=== PATIENT | female | born 2000 | race Caucasian/White ===

== ENCOUNTER 2025-03-11 11:42 | Outpatient (REF) | payer MEDICAID, SELFPAY ==
--- OUTSIDE RECORDS SUMMARY | 2025-03-11 12:56 | XMS_ITS ---
Author Organization [employer] Address [address] [place] [address] Care Team Providers Care Tool Grinding Technician Name Role Phone Unavailable Primary Care Provider Unavailabl e C3 CHW TO Status:Enrolled (Active) Start date:02/05/2025 Enrollment date:02/21/2025 Enrollment reason:ADT Feed Case Team Name Relationship Phone Esperanza Redding(Responsible Staff) Assurance Specialist Continued Care and Services Coordination
--- OUTSIDE RECORDS SUMMARY | 2025-03-11 12:56 | XMS_ITS ---
Author Organization [email or web address] Address [address] [place] [address] [place] [address] Care Team Providers Care Astrochemist Name Role Phone Unavailable Primary Care Provider Unavailabl e C3 CM BHTOC Status:Enrolled (Active) Start date:02/05/2025 Enrollment date:02/06/2025 Enrollment reason:ADT Feed Case Team Name Relationship Phone Britany Rodriges LMHC(Responsible Staff) Social Worke r [phone] Continued Care and Services Coordination
--- OUTSIDE RECORDS SUMMARY | 2025-03-11 12:56 | XMS_ITS | Encounter Summary ---
Author Organization [employer] Address [address] [facility] 7 [place] [address] Care Team Providers Care Information Systems Security Analyst Name Role Phone Unavailable Primary Care Provider Unavailabl e Reason for Visit * Reason Onset Date Comments Chart Prep 03/10/2025 Encounter Details Date Type Department Care Team (Late st Contact Info) Description 03/10/2025 Telephone [facility] [address] [place], [place] [phone] Robyn Duarte MD [address] [place] [address] Chart Prep Social History Tobacco Use Types Packs/Day Years Used Date Smoking Tobacco: Never Assessed Housing Stability Answer Date Recorded What is your housing situation today? I have housing today, but I am worried about losing housing in the future 02/26/[address] you li ve. Do you have problems with any of the following? None of the above 02/26/2025 Food Insecurity Answer Date Recorded Within the past 12 months, y ou worried that your food would run out before you got money to buy more: Often true 02/21/2025 Within the past 12 months,th e food you bought just didn't last and you didn't have enough money to get more: Often true 11/2024 Transportation Answer Date Recorded In the past 12 months, has l ack of transportation kept you from medical appts, meetings, work or from getting things needed for daily living? Yes, it has kept me from medical appointments or getting medications. 02/21/2025 Utilities Answer Date Recorded In the past 12 months, has t he electric, gas, oil or water company threatened to shut off services in your home? No 02/21/2025 Internet Access Answer Date Recorded Internet Access Q1 No 02/21/2025 Internet Access Q2 I cannot afford it 02/21/2025 Comments Unknown Sex and Gender Information Value Date Recorded Sex Assigned at Female 05/28/2024 10:51 AM EDT Legal Sex Female 10:49 AM EDT Gender Identity Female 05/28/2024 10:51 AM EDT Sexual Orientation Don't know 05/28/2024 10 :51 AM EDT documented as of this encounter Miscellaneous Notes * Telephone Encounter - Nereida Ponce MA - 03/10/2025 3:37 PM EDT Chart Prep Labs: not applicable Images: not applicable Referrals: not applicable Vaccines due: Covid, Tdap, Hep B, Hep A, MCV4, and HPV Screenings: pap smear, STI screening, LMP, and Hepatitis C Screening, HIV Screenig, Tobacco Screening Overdue care gaps: SBIRT, PHQ-9, GEORGE-7, Oral health screening, Disability screen, and Tobacco documented in this encounter Plan of Treatment Not on file documented as of this encounter Visit Diagnoses Not on filedocumented in this encounter
--- OUTSIDE RECORDS SUMMARY | 2025-03-11 12:56 | XMS_ITS | Encounter Summary ---
Author Organization [employer] Address [address] [facility] 7t [place] [address] Care Team Providers Care Medical Planner Name Role Phone Unavailable Primary Care Provider Unavailabl e Encounter Details Date Type Department Care Team (Latest Contact Info) Description 03/11/2025 Travel Social History Tobacco Use Types Packs/Day Years Used Date Smoking Tobacco: Never Smokeless Tobacco: Never Alcohol Use Standard Drinks/Week Comments Never 0 (1 standard drink = 0.6 oz pur e alcohol) Housing Stability Answer Date Recorded What is [...] t he electric, gas, oil or water [facility] threatened to shut off services in your home? No 02/21/2025 Internet Access Answer Date Recorded Internet Access Q1 No 02/21/2025 Internet Access Q2 I cannot afford it 02/21/2025 Comments No Sex and Gender Information Value Date Recorded Sex Assigned at Female 05/28/2024 10:51 AM EDT Legal Sex Female 10:49 AM EDT Gender Identity Female 05/28/2024 10:51 AM EDT Sexual Orientation Don't know 05/28/2024 10 :51 AM EDT documented as of this encounter Plan of Treatment Not on file documented as of this encounter Visit Diagnoses Not on filedocumented in this encounter
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
--- OUTSIDE RECORDS SUMMARY | 2025-03-11 12:57 | XMS_ITS | Clinical Summary ---
Author Organization [facility] Address [address] [place] [address] Phone Care Team Providers Care Interactive Project Manager Name Role Phone Physician, No Pcp Primary Care Provider Unavaila ble Allergies No known active allergies Medications methocarbamoL (ROBAXIN) 750 mg tablet Take 1 tablet (750 mg total) by mouth 4 (four) times a day for 10 days. 40 each 12/22/2024 Active Encounters Date Type Department Care Team Description 12/22/2024 2:51 PM EST - 12/22/2024 5:42 PM EST Emergency [facility] Emergency [address] [place] [address] Acute back pain with sciatica, right (Primary Dx) Discharge Disposition: Home or Self Care from Last 3 Months Social History Tobacco Use Types Packs/Day Years Used Date Smoking Tobacco: Never Assessed Comments Unknown Sex and Gender Information Value Date Recorded Sex Assigned at Female 12/22/2024 3:42 PM EST Legal Sex Female 2:14 PM EST Gender Identity Female 12/22/2024 3:42 PM EST Sexual Orientation Not on file Obstetrics History Last Filed Vital Signs Vital Sign Reading Time Taken Comments Blood Pressure 100/66 12/22/2024 1:35 PM EST Pulse 99 12/22/2024 1:35 PM EST Temperature 36.9 ??C (98.4 ??F) 12/22/2024 1:35 PM ES T Respiratory Rate 20 12/22/2024 1:35 PM EST Oxygen Saturation 100% 12/22/2024 1:35 PM EST Inhaled Oxygen Concentration - - Weight 49.9 kg (110 lb) 12/22/2024 1:35 PM EST Height 165.1 cm (5' 5 ) 12/22/2024 1:35 PM EST Body Mass Index 18.3 12/22/2024 1:35 PM EST Plan of Treatment Health Maintenance Due Date Last Done Comments Gonorrhea/Chlamydia Screening 2001 HPV Vaccines (2 - 2-dose series) 09/26/2015 03/27/2015 Hepatitis A Vaccines (2 of 2 - 2-dose series) 09/26/2015 03/27/2015 Meningococcal B Vaccine (1 o f 2 - Standard) 2017 Hepatitis B Vaccines (2 of 3 - 3-dose series) 11/26/2018 10/29/2018 DTaP,Tdap,and Td Vaccines (1 - Tdap) 2020 Depression Screening 09/21/2022 HIV Screening 09/21/2022 Hepatitis C Screening 09/21/2022 Social Influencers of Health Screening 09/21/2022 Cervical Cancer Screening: P ap Smear 2022 COVID-19 Vaccine ( - 2023-2 5 season) 2024 Influenza Vaccine (Season Ended) 2025 10/29/2018, 06/30/2017, 06/23/2016 Meningococcal ACWY Vaccine Completed 10/29/2018 HIB Vaccines Aged Out No longer eligi ble based on patient's age to complete this topic IPV Vaccines Aged Out No longer eligi ble based on patient's age to complete this topic MMR Vaccines Aged Out No longer eligi ble based on patient's age to complete this topic Pneumococcal Vaccine: Pediatrics (0 to 5 Years) and At-Risk Patients (6 to 64 Years) Aged Out No longer eligible b ased on patient's age to complete this topic RSV Immunization Patients Under 20 months Aged Out No longer eligible b ased on patient's age to complete this topic Varicella Vaccines Aged Out No longer eligible based on patient's age to complete this topic Procedures Procedure Name Priority Date/Time Associated Diagnosis Comments XR LUMBAR SPINE 2-3 VIEWS STAT 12/22/2024 5:10 PM EST from Last 3 Months Results * XR Lumbar Spine 2-3 Views (12/22/2024 5:10 PM EST) Anatomical Region Laterality Modality Spine, L-spine Radiographic Marlin ging 12/23/2024 8:55 AM EST Impressions 12/23/2024 8:55 AM EST FINDINGS/IMPRESSION: Normal alignment. ??No fracture. ??No significant degenerative change. -------- FINAL REPORT -------- Dictated By: LEON ANGUIANO Dictated Date: 12/23/2024 08:55 ET Assigned Physician: LEON ANGUIANO Reviewed and Electronically Signed By: LEON ANGUIANO Signed Date: 12/23/2024 08:55 ET Workstation ID: [id number] Transcribed By: Self Edit Transcribed Date: 12/23/2024 08:55 ET Narrative 12/23/2024 8:55 AM EST XR LUMBAR SPINE 2-3 VIEWS INDICATION: ??Pain TECHNIQUE: XR LUMBAR SPINE 2-3 VIEWS COMPARISON: No priors available. Procedure Note Leon Anguiano MD - 12/23/2024 XR LUMBAR SPINE 2-3 VIEWS INDICATION: Pain TECHNIQUE: XR LUMBAR SPINE 2-3 VIEWS COMPARISON: No priors available. IMPRESSION: FINDINGS/IMPRESSION: Normal alignment. No fracture. No significantdegenerative change. -------- FINAL REPORT -------- Dictated By: LEON ANGUIANO Dictated Date: 12/23/2024 08:55 ET Assigned Physician: LEON ANGUIANO Reviewed and Electronically Signed By: LEON ANGUIANO Signed Date: 12/23/2024 08:55 ET Workstation ID: [id number] Transcribed By: Self Edit Transcribed Date: 12/23/2024 08:55 ET Minerva VAL[facility]INE IMG XR PROCEDURES Final Resul t from Last 3 Months Insurance MEDICAID - [place] Care Teams Interactive Project Manager Relationship Specialty Start Date End Date Physician, No Pcp PCP - General 12/22/24
--- OUTSIDE RECORDS SUMMARY | 2025-03-11 12:57 | XMS_ITS | Clinical Summary ---
Author Organization [facility] Address [address] [facility] [address] [place] [address] Care Team Providers Care Modular Set Crew Member Name Role Phone Unavailable Primary Care Provider Unavailabl e Allergies No known active allergies Medications gabapentin (Neurontin) 100 MG capsule Take 1 capsule by mouth 2 times daily. And 2 capsules at bedtime 01/31/20 25 Active melatonin 3 MG tablet Take 3 tablets by mouth at bedtime. 02/07/20 25 Active sertraline (Zoloft) 100 MG tablet Take 1 tablet by mouth in the morning. 02/26/20 25 Active cholecalcifero l (Vitamin D3) 25 MCG (1000 UT) tablet Take 1 tablet (1,000 Units) by mouth Once per day. 90 tablet 1 03/11/20 25 Active albuterol 108 (90 Base) MCG/ACT inhaler Inhale 2 puffs every 6 (six) hours if needed for wheezing. 18 g 03/11/20 25 026 Active nicotine polacrilex (Nicorette) 4 MG gum Chew 1 each (4 mg) if needed for smoking cessation. 100 each 03/11/20 25 025 Active cholecalcifero l (Vitamin D-3) 10 MCG (400 UNIT) tablet Take 1 tablet by mouth Once per day. 02/26/20 25 025 Discontinued(Re order (will not trigger notification to Pharmacy)) Active Problems Problem Noted Date Diagnosed Date Recurrent major depressive disorder, in partial remission 03/11/2025 Assessment & Plan (03/11/2025 11:53 AM EDT): Status post hospital discharge, doing well on sertraline + gabapentin Continue close follow-up with psychiatry and encouraged her to reschedule counseling appointment Advised to avoid using recreational substances including THC Patient feels safe at home and has crisis number, she is able to reach out for safety. Follow-up with me in 4 to 6 weeks Tetrahydrocannabinol (THC) u se disorder, moderate, in early remission, dependence 03/11/2025 Assessment & Plan (03/11/2025 11:53 AM EDT): On remission for few weeks, doing well on gabapentin and sertraline Will have BH to reach out to counseling in [facility] to reschedule patient appointments, patient will continue to reach out to reschedule her own appointment I congratulated him for being sober, she has crisis number, she can reach out to our walk-in center in case of severe cravings Vaping nicotine dependence, tobacco product 02/21 Assessment & Plan (03/11/2025 12:04 PM EDT): Discussed with patient regarding risks and dangers of vaping, advised to cut down on nicotine and use nicotine gum as needed. Will need PFTs at future visit Sexually transmitted disease counseling 03/11/20 Assessment & Plan (03/11/2025 11:52 AM EDT): Would like to be tested for STIs, history of unprotected intercourse with same partner for 8 years Desire for 03/11/2025 Assessment & Plan (03/11/2025 11:51 AM EDT): We discussed importance of treating underlying condition [...] she declined to use any contraceptive method. Encounters Date Type Department Care Team Description 03/11/2025 10:45 AM EDT Office Visit [facility] MEDICINE [address] [place] [phone] Robyn Duarte MD Recurrent major depressive disorder, in partial remission (CMS/HCC) (Primary Dx); Tetrahydrocannabin ol (THC) use disorder, moderate, in early remission, dependence (CMS/HCC); Vaping nicotine dependence, tobacco product; Sexually transmitted disease counseling; Desire for 03/11/2025 Travel 03/10/2025 Telephone [facility] MED[facility]INE [address] [place] [phone] Robyn Duarte MD Chart Prep 03/05/2025 Patient Outreach [address] [phone] Amrik Adler MD Transition Of Care (Tcm) (HDF scheduled) 03/05/2025 Telephone [facility] MED[facility]INE [address] [place] [phone] Kirsten Milner PharmD 03/05/2025 Patient Outreach [facility] [address] [phone] Britany Rodriges, [facility] 03/04/2025 Patient Outreach [facility] [address] [place] [address] ReddingEsperanza spencer 03/04/2025 Patient Outreach [facility] [address] [place] [address] Ericka Rivers 02/27/2025 Patient Outreach [facility] [address] [address] Britany Rodriges, [facility] 02/26/2025 Patient Outreach [facility] [address] [place] [address] [place], Esperanza 02/26/2025 Patient Outreach [facility] [address] [place] [address] [place], Esperanza 02/26/2025 Patient Outreach [facility] [address] [place] [address] [place], Esperanza 02/21/2025 Patient Outreach [facility] [address] [place] [address] RodrigesKira colexa, [facility] 02/21/2025 Patient Outreach [facility] [address] [phone] [place], Esperanza 02/21/2025 Patient Outreach [facility] [address] [place] [address] [place], Esperanza 02/20/2025 Patient Outreach [facility] [address] [phone] Rodriges, Britany, [facility] 02/18/2025 Patient Outreach [facility] [address] [place] [address] Rodriges, Britany, [facility] 02/14/2025 Patient Outreach [facility] [address] [place] [address] [place], Esperanza 02/14/2025 Patient Outreach [facility] [address] [place] [address] [place], Esperanza 02/14/2025 Patient Outreach [facility] [address] [place] [address] Rodriges, Britany, [facility] 02/14/2025 Patient Outreach [facility] [address] [place] [address] Rodriges, Britany, [facility] 02/12/2025 Patient Outreach [facility] [address] [place] [address] Rodriges, Britany, [facility] 02/12/2025 Patient Outreach [facility] [address] [place] [address] [place], Esperanza 02/12/2025 Patient Outreach [facility] [address] [place] [address] [place], Esperanza 02/12/2025 Patient Outreach [facility] [address] [place] [address] ReddingMaria Antonia spencery 02/11/2025 Patient Outreach [facility] [address] [place] [address] ReddingDionne spencerzy 02/10/2025 Patient Outreach [facility] [address] [place] [address] RodrigesKira colexa, HC 02/06/2025 Patient Outreach [facility] [address] [place] [address] Rodriges, Britany, [facility] 02/06/2025 Patient Outreach [facility] [address] [place] [address] RodrigesKira colexa, HC 02/05/2025 Patient Outreach [facility] [address] [place] [address] ReddingEsperanza spencer 02/05/2025 Patient Outreach [facility] [address] [place] [address] ReddingEsperanza spencer 02/05/2025 Patient Outreach [facility] [address] [place] [address] ReddingDionne spencerzy 02/05/2025 Patient Outreach [facility] [address] [place] [address] RodrigesKira colexa, LMHC 01/31/2025 Telephone [facility] MED[facility] [address], [place] [phone] Juana Riddle DO Appointment Request 01/24/2025 Patient Outreach [facility] [address], [place] [phone] Juana Riddle DO Pre-visit Planning (SDOH unable to reach, Number disconnected) 01/22/2025 Population Health Risk Score [facility] [address] [address] Provider, Population Health Generic from Last 3 Months Immunizations Immunization Administration Dates Next Due HPV, Quadrivalent 03/27/2015 Hep A, ped/adol, 2 dose 03/27/2015 Hep B, Adolescent or Pediatric 10/29/2018 Influenza injectable quadriv alent preservative free 10/29/2018,06/30/2017,06/23/2016 Meningococcal [id number] [id number] 10/29/2018 Social History Tobacco Use Types Packs/Day Years [...] Don't know 05/28/2024 10 :51 AM EDT Last Filed Vital Signs Vital Sign Reading [...] Mass Index 16.81 03/11/2025 11:00 AM EDT Plan of Treatment Health Maintenance Due Date Last Done Comments Chlamydia and Gonorrhea Screening 2001 Depression Screening 2001 HIV Screening 2001 Lipid Panel 2001 Disability Screening 2001 Alcohol/Substance Use Screening 2013 Meningococcal B Vaccine (1 of 2 - Standard) 2017 Hepatitis C Screening 2019 Pap Smear 2022 DTaP/Tdap/Td Vaccines (7 - Td or Tdap) 11/28/2022 11/28/2012, 05/31/2006, 03/07/2005, Additional history exists COVID-19 Vaccine ( season) 2024 Influenza Vaccine (#1) 2024 9, 06/30/2017, 06/23/2016, Additional history exists SDOH Screening 02/26/2026 02/26/2025 Family Planning (PISQ) 03/11/2026 03/11/2025 Tobacco Screening 03/11/2026 03/11/2025 Zoster Vaccines (1 of 2) 2051 RSV Patients and Patients Aged 60 years or older (1 - 1-dose 75+ series) 2076 HIB Vaccines Completed 02/26/2003, 07/09/2002 Pneumococcal Vaccine: Pediatrics (0 to 5 Years) and At-Risk Patients (6 to 49) Years) Aged Out 09/09/2003, 04/01/2003 No longer eligibl e based on patient's age to complete this topic IPV Vaccines Completed 05/31/2006, 03/23, 02/26/2003, Additional history exists HPV Vaccines Completed 03/27/2015, 12/2013, 11/28/2012 Hepatitis A Vaccines Completed 03/27/2015, 03/25/20 14 Hepatitis B Vaccines Completed 10/29/2018, 04/01/2003, 02/26/2003, Additional history exists Meningococcal Vaccine Completed 10/29/2018, 013 RSV under 20 months Aged Out No longe r eligible based on patient's age to complete this topic Rotavirus Vaccines Aged Out No longer eligible based on patient's age to complete this topic Insurance [address] [place] [address] STANDARD
[2025-03-11 13:14] LABS: MANUAL DIFF FLAG NO
[2025-03-11 13:22] LABS: Basophils Absolute Auto 0.1 X10*3/uL (0.0-0.2); Basophils Percent Auto 0.8 % (0-2); Eosinophils Absolute Auto 0.5 X10*3/uL (0.0-0.4); Eosinophils Percent Auto 6.9 % (0-4); Hematocrit 42.2 % (37.0-47.0); Imm Gran Abs Auto 0.02 X10*3/uL (0.00-0.03); Imm Gran Pct Auto 0.3 % (0.0-0.4); Lymphocytes Absolute Auto 1.3 X10*3/uL (1.2-4.9); Lymphocytes Percent Auto 17.3 % (20-40); Mean Corpuscular HGB Conc 33.2 g/dl (31.0-35.0); Mean Corpuscular Hemoglobin 29.8 pg (27.0-33.0); Mean Corpuscular Volume 89.8 fL (80.0-98.0); Mean Platelet Volume 12.2 fL (9.4-12.3); Monocytes Absolute Auto 0.7 X10*3/uL (0.1-1.2); Monocytes Percent Auto 8.8 % (2-11); Neutrophils Absolute Auto 5.1 x10*3/uL (2.0-8.3); Neutrophils Percent Auto 65.9 % (45-73); Platelet Count 228 X10*3/uL (160-400); Red Cell Distribution Width 11.9 % (11.0-16.0); White Blood Count 7.7 X10*3/uL (4.8-10.8)
[2025-03-11 14:04] LABS: Alanine Aminotransferase 18 U/L (0-31); Albumin Level 4.4 g/dL (3.5-5.0); Alkaline Phosphatase 77 U/L (39-117); Anion Gap 9 (12-20); Aspartate Amino Transferase 19 U/L (5-31); Bilirubin Total 0.5 mg/dL (0.0-1.0); Blood Urea Nitrogen 10 mg/dL (9-16); Calcium 9.3 mg/dL (8.4-10.2); Carbon Dioxide 28 mmol/L (22-29); Chloride 106 mmol/L (96-108); Cholesterol 171 mg/dL (<200); Estimated Glomerular Filt Rate > 60; Glucose Random 83 mg/dL (60-115); HDL Cholesterol 60 mg/dL (>40); LDL Cholesterol Calculated 98 mg/dL (<100); Sodium 139 mmol/L (135-145); Total Protein 7.1 g/dL (6.5-8.0); Triglycerides 69 mg/dL (<150)
[2025-03-11 14:07] LABS: TSH reflex Free T4 1.33 uIU/mL (0.32-4.0)
[2025-03-11 16:06] LABS: Reflex LDLD? No
[2025-03-12 03:35] LABS: Hepatitis A Antibody IgM 0.18 Index (0-0.79); ~Hepatitis A Antibody IgM Nonreactive (Nonreactive)
[2025-03-12 04:12] LABS: HBS Num1 301.52 mIU/mL (0-7.99); HBc Num1 0.04 S/CO (0.00-0.79); HBsAGNum1 0.47 S/CO (0.00-0.99); HIV AB/AG Nonreactive (Nonreactive); HIV Num 1 0.06 S/CO (0.00-0.99); Hepatitis B Core Antibody Nonreactive (Nonreactive); Hepatitis B Surface Antigen Negative (Negative); ~HepC Num1 0.09 S/CO (0.00-0.79); ~Hepatitis B Surface Antibody REACTIVE (Nonreactive); ~Hepatitis C Antibody Nonreactive (Nonreactive)
[2025-03-12 06:03] LABS: Rubella IgG Antibody 1.12 Index; Rubeola IgG (Measles) <13.50 AU/mL
== END 2025-03-11 11:43 | disposition home or self-care (01) ==
LOC: HO.HHCL 11:42
PROVIDERS: Visit Provider Internal Medicine
DX: F33.41 Major depressive disorder, recurrent, in partial remission (principal); F17.290 Nicotine dependence, other tobacco product, uncomplicated; Z70.8 Other sex counseling
CPT/HCPCS: 36415; 80053; 80061; 84443; 85025; 86704; 86706; 86709; 86735; 86762; 86765; 86803; 87340; 87389